=== PATIENT | male | born 1950 ===

== ENCOUNTER 2020-11-02 13:19 | Inpatient (IN) ==
[2020-11-02] MEDS: Enoxaparin 60 MG/0.6 ML SYR SUBCUT SCH (15:43)
[2020-11-02] MEDS: Baricitinib 2 MG TAB (NF) PO SCH (15:43)
[2020-11-02] MEDS: Dexamethasone IV 4 MG/ML VIAL 1 ml VIAL IV SLOW PU SCH (15:43)
[2020-11-02] MEDS ORDERED: Albuterol HFA INHALER 8 gm MDI INH PRN (17:41)
[2020-11-02] MEDS ORDERED: guaiFENesin 100 mg/5 ml LIQ unit dose cup PO PRN (17:43)
[2020-11-02] MEDS: Mometasone/Formoter 200/5 MDI INH SCH ×2 (19:41→22:00)
[2020-11-02] MEDS: Fluorometholone 0.1% OPTH.SUS 5 ML BTL LEFT EYE SCH (21:09)
[2020-11-02] MEDS: Remdesivir 100 mg Vial 100 MG in NS 0.9% 100 ml BAG 100 ML IV SCH (21:10)
[2020-11-03] MEDS: Enoxaparin 60 MG/0.6 ML SYR SUBCUT SCH ×2 (01:37→15:52)
[2020-11-03] MEDS: Mometasone/Formoter 200/5 MDI INH SCH (07:49)
[2020-11-03] MEDS: Dexamethasone IV 4 MG/ML VIAL 1 ml VIAL IV SLOW PU SCH (08:04)
[2020-11-03 08:40] LABS: ABS Monocytes 0.3 10^3/ul (0-0.8); ABS Neutrophils 3.1 10^3/ul (1.5-7.7); Eosinophil % 0.1 %; Hematocrit 37 % (42-52); Hemoglobin 12.7 g/dL (14.0-18.0); Lymphocyte % 23.6 %; Mean Corpuscular HGB Conc 34 g/dL (31-36); Mean Corpuscular Hemoglobin 30 pg (27-31); Mean Corpuscular Volume 89 fL (80-94); Red Blood Count 4.17 10^6 /uL (4.18-5.48); Red Cell Distribution Width 15 % (10-15); White Blood Count 4.4 10^3/uL (3.5-10.8)
[2020-11-03 08:48] LABS: INR 1.12 (0.86-1.15)
[2020-11-03 08:49] LABS: Albumin 3.7 g/dL (3.2-5.2); Albumin/Globulin Ratio 1.3 (1-3); Calcium 8.4 mg/dL (8.6-10.3); EGFR African American 84.9 (>60); EGFR Non-African American 70.2 (>60); Globulin 2.9 g/dL (2-4); Magnesium 2.1 mg/dL (1.9-2.7); Phosphorus 3.1 mg/dL (2.5-5.0); Potassium 4.3 mmol/L (3.5-5.0); Total Bilirubin 0.6 mg/dL (0.2-1.0); Total Protein 6.6 g/dL (6.4-8.9)
[2020-11-03] MEDS: cefTRIAXone 1 gm/50 mL NS BAG 1 GM/50 ML BAG IVPB SCH (09:28)
[2020-11-03 10:29] LABS: Platelet Count Platelets clumped. 10^3/uL (150-450)
[2020-11-03] MEDS: Azithromycin 500 mg/250 ml NS 500 MG/250 ML BAG IVPB SCH (10:50)
[2020-11-03] MEDS: Fluticasone NASAL SPRAY 50MCG 16 gm SPRAY BTL BOTH NARES SCH (11:41)
[2020-11-03] MEDS ORDERED: Perflutren Lipid Microsphere 3 ML VIAL ONE (12:56)
[2020-11-03] MEDS: Baricitinib 2 MG TAB (NF) PO SCH (15:52)
[2020-11-03] MEDS: Remdesivir 100 mg Vial 100 MG in NS 0.9% 100 ml BAG 100 ML IV SCH (21:47)
[2020-11-03] MEDS: Fluorometholone 0.1% OPTH.SUS 5 ML BTL LEFT EYE SCH (21:53)
[2020-11-04] MEDS: Enoxaparin 60 MG/0.6 ML SYR SUBCUT SCH (02:33)
[2020-11-04 07:40] LABS: Hematocrit 37 % (42-52); Hemoglobin 12.8 g/dL (14.0-18.0); Mean Corpuscular HGB Conc 35 g/dL (31-36); Mean Corpuscular Hemoglobin 30 pg (27-31); Mean Corpuscular Volume 88 fL (80-94); Red Blood Count 4.21 10^6 /uL (4.18-5.48); Red Cell Distribution Width 15 % (10-15); White Blood Count 3.4 10^3/uL (3.5-10.8)
[2020-11-04 07:51] LABS: Albumin 3.5 g/dL (3.2-5.2); Albumin/Globulin Ratio 1.2 (1-3); Calcium 8.5 mg/dL (8.6-10.3); EGFR African American 87.9 (>60); EGFR Non-African American 72.6 (>60); Potassium 3.8 mmol/L (3.5-5.0); Total Bilirubin 0.7 mg/dL (0.2-1.0); Total Protein 6.5 g/dL (6.4-8.9)
[2020-11-04 08:14] LABS: ABS Lymphocytes 1.3 10^3/ul (1.0-4.8); ABS Monocytes 0.2 10^3/ul (0-0.8); ABS Neutrophils 1.9 10^3/ul (1.5-7.7); Eosinophil % 0.4 %; Mean Platelet Volume 7.6 fL (7.4-10.4); Nucleated Red Blood Cells % 0.1; Platelet Count 73 10^3/uL (150-450)
[2020-11-04] MEDS: cefTRIAXone 1 gm/50 mL NS BAG 1 GM/50 ML BAG IVPB SCH (09:30)
[2020-11-04] MEDS: Dexamethasone IV 4 MG/ML VIAL 1 ml VIAL IV SLOW PU SCH (09:31)
[2020-11-04] MEDS: Azithromycin 500 mg/250 ml NS 500 MG/250 ML BAG IVPB SCH (10:14)
[2020-11-04] MEDS: Fluticasone NASAL SPRAY 50MCG 16 gm SPRAY BTL BOTH NARES SCH (11:10)
[2020-11-04 12:21] VITALS: BP 147/72
== END 2020-11-04 13:15 | disposition home or self-care (01) | DRG 177 ==
LOC: ICU 13:19 → MED 11-03 14:08
PROVIDERS: ADMIT Internal Medicine Critical Care Medicine; ATTEND Internal Medicine Critical Care Medicine